=== PATIENT | male | born 1985 | race Caucasian/White ===

== ENCOUNTER 2019-02-02 15:52 | Emergency (ER) | payer BC, OTHER ==
[2019-02-02] MEDS ORDERED: Naproxen TAB* 250 MG PO ONE (16:13)
[2019-02-02 16:35] LABS: ABS Basophils 0.1 10^3/ul (0-0.2); ABS Eosinophils 0.3 10^3/ul (0-0.6); ABS Lymphocytes 2.7 10^3/ul (1.0-4.8); ABS Monocytes 0.9 10^3/ul (0-0.8); ABS Neutrophils 6.8 10^3/ul (1.5-7.7); ABS Nucleated RBC 0 10^3/ul; Eosinophil % 3.1 %; Hematocrit 46 % (36-46); Hemoglobin 15.3 g/dL (14.0-18.0); Lymphocyte % 24.6 %; Mean Corpuscular HGB Conc 33 g/dL (31-36); Mean Corpuscular Hemoglobin 28 pg (27-31); Mean Corpuscular Volume 84 fL (80-94); Mean Platelet Volume 7.6 fL (7.4-10.4); Nucleated Red Blood Cells % 0; Platelet Count 294 10^3/uL (150-450); Red Blood Count 5.49 10^6 /uL (4.18-5.48); Red Cell Distribution Width 14 % (10.5-15); White Blood Count 10.8 10^3/uL (3.5-10.8)
[2019-02-02 16:57] LABS: Albumin 4.7 g/dL (3.2-5.2); Albumin/Globulin Ratio 1.4 (1-3); C Reactive Protein 8.13 mg/L (<8.01); Calcium 9.4 mg/dL (8.6-10.3); EGFR African American 84.1 (>60); EGFR Non-African American 69.5 (>60); Globulin 3.3 g/dL (2-4); Total Bilirubin 0.3 mg/dL (0.2-1.0); Uric Acid 9.8 mg/dL (4.4-7.6)
--- NOTE | 2019-02-02 17:11 | ED ---
Lower Extremity - HPI Summary HPI Summary: Patient complains of great left toe pain 2 day. States he's been taking Augmentin 4 days and states it may be possible allergic reaction. States she has taken Augmentin before without issue. States pain is at joint of big toe with some mild redness and swelling. Denies history of similar symptoms. Denies trauma, fever, cough, sore throat, CP, SOB, N/V/D, abdominal pain, change in urine, change in BM. Denies history of gout. Medical history is none. Family history of gout. - History of Current Complaint Chief Complaint: EDExtremityLower Stated Complaint: MEDICATION REACTION PER PT Time Seen by Provider: 02/02/19 16:01 Hx Obtained From: Patient Mechanism Of Injury: Unknown Onset of Pain: Days Onset/Duration: Days Severity Initially: Severe Severity Currently: Severe Pain Intensity: 8 Pain Scale Used: 0-10 Numeric Timing: Constant, Lasting Days Location: Is Discrete @ Character Of Pain: Aching, Throbbing Associated Signs And Symptoms: Positive: Swelling, Redness Aggravating Factor(s): Standing, Ambulation, Weight Bearing Alleviating Factor(s): Rest Able to Bear Weight: Yes - Allergies/Home Medications Allergies/Adverse Reactions: Allergies Allergy/AdvReac Type Severity Reaction Status Date / Time No Known Allergies Allergy Verified 02/02/19 15:54 PMH/Surg Hx/FS Hx/Imm Hx Endocrine/Hematology History: Denies: Hx Diabetes, Hx Thyroid Disease Cardiovascular History: Denies: Hx Hypertension Respiratory History: Denies: Hx Asthma, Hx Chronic Obstructive Pulmonary Disease (COPD) GI History: Denies: Hx Ulcer History: Denies: Hx Dialysis Sensory History: Denies: Hx Eye Prosthesis Opthamlomology History: Denies: Hx Legally Blind EENT History: Denies: Hx Deafness Neurological History: Denies: Hx Dementia Psychiatric History: Denies: Hx Autism - Surgical History Surgery Procedure, Year, and Place: cyst in throat- 5 yrs old Infectious Disease History: No Infectious Disease History: Denies: Hx Hepatitis, Hx Human Immunodeficiency Virus (HIV), Traveled Outside the [place] in Last 30 Days - Family History Known Family History: Positive: None - Social History Alcohol Use: Occasionally Substance Use Type: Reports: None Smoking Status (MU): Never Smoked Tobacco Length of Time of Smoking/Using Tobacco: 10 years Have You Smoked in the Last Year: Yes Review of Systems Constitutional: Negative Eyes: Negative ENT: Negative Cardiovascular: Negative Respiratory: Negative Gastrointestinal: Negative Genitourinary: Negative Musculoskeletal: Other Skin: Negative Neurological: Negative Psychological: Normal All Other Systems Reviewed And Are Negative: Yes Physical Exam - Summary Physical Exam Summary: Mild swelling and erythema to MTP joint of left great toe. No extra warmth noted. Mild tenderness to palpation of left great toe, left MTP joint and surrounding area. Full range of motion of left ankle and knee. Calf soft nontender. Pulses intact on left foot. Triage Information Reviewed: Yes Vital Signs On Initial Exam: Initial Vitals Temp Pulse Resp BP Pulse Ox 98.0 F 99 19 152/106 99 02/02/19 15:54 02/02/19 15:54 02/02/19 15:54 02/02/19 15:54 02/02/19 15:54 Vital Signs Reviewed: Yes Appearance: Positive: Well-Appearing Skin: Positive: Warm Head/Face: Positive: Normal Head/Face Inspection Eyes: Positive: Normal Neck: Positive: Supple Respiratory/Lung Sounds: Positive: Clear to Auscultation Cardiovascular: Positive: Normal Abdomen Description: Positive: Nontender Musculoskeletal: Positive: Normal Neurological: Positive: Normal Psychiatric: Positive: Normal AVPU Assessment: Alert - [place] Coma Scale Best Eye Response: 4 - Spontaneous Best Motor Response: 6 - Obeys Commands Best Verbal Response: 5 - Oriented Coma Scale Total: 15 Diagnostics - Vital Signs Vital Signs Temp Pulse Resp BP Pulse Ox 02/02/19 15:54 98.0 F 99 19 152/106 99 - Laboratory Lab Results: Lab Results 02/02/19 02/02/19 Range/Units 16:26 16:26 WBC 10.8 (3.5-10.8) 10^3/uL RBC 5.49 H (4.18-5.48) 10^6 /uL Hgb 15.3 (14.0-18.0) g/dL Hct 46 (36-46) % MCV 84 (80-94) fL MCH 28 (27-31) pg MCHC 33 (31-36) g/dL RDW 14 (10.5-15) % Plt Count 294 (150-450) 10^3/uL MPV 7.6 (7.4-10.4) fL Neut % (Auto) 63.2 % Lymph % (Auto) 24.6 % Lar[place] % (Auto) 8.5 % Eos % (Auto) 3.1 % Baso % (Auto) 0.6 % Absolute Neuts (auto) 6.8 (1.5-7.7) 10^3/ul Absolute Lymphs (auto) 2.7 (1.0-4.8) 10^3/ul Absolute Monos (auto) 0.9 H (0-0.8) 10^3/ul Absolute Eos (auto) 0.3 (0-0.6) 10^3/ul Absolute Basos (auto) 0.1 (0-0.2) 10^3/ul Absolute Nucleated RBC 0 10^3/ul Nucleated RBC % 0 ESR Pending Sodium 142 (135-145) mmol/L Potassium Pending Chloride 106 (101-111) mmol/L Carbon Dioxide 28 (22-32) mmol/L Anion Gap Pending BUN 23 (6-24) mg/dL Creatinine 1.21 H (0.67-1.17) mg/dL Est GFR ( Amer) 84.1 (>60) Est GFR (Non-Af Amer) 69.5 (>60) BUN/Creatinine Ratio 19.0 (8-20) Glucose 106 H (70-100) mg/dL Uric Acid 9.8 H (4.4-7.6) mg/dL Calcium 9.4 (8.6-10.3) mg/dL Total Bilirubin 0.30 (0.2-1.0) mg/dL AST Pending ALT 113 H (7-52) U/L Alkaline Phosphatase 48 (34-104) U/L C-Reactive Protein 8.13 H (<8.01) mg/L Total Protein 8.0 (6.4-8.9) g/dL Albumin 4.7 (3.2-5.2) g/dL Globulin 3.3 (2-4) g/dL Albumin/Globulin Ratio 1.4 (1-3) Result Diagrams: 02/02/19 16:26 02/02/19 16:26 Lab Statement: Any lab studies that have been ordered have been reviewed, and results considered in the medical decision making process. Lower Extremity Course/Dx - Course Course Of Treatment: Patient complains of great left toe pain 2 day. States he 's been taking Augmentin 4 days and states it may be possible allergic reaction. States she has taken Augmentin before without issue. States pain is at joint of big toe with some mild redness and swelling. Denies history of similar symptoms. Denies trauma, fever, cough, sore throat, CP, SOB, N/V/D, abdominal pain, change in urine, change in BM. Denies history of gout. Medical history is none. Family history of gout. Brother just recently diagnosed with gout at age of 27. Physical exam:Mild swelling and erythema to MTP joint of left great toe. No extra warmth noted. Mild tenderness to palpation of left great toe, left MTP joint and surrounding area. Full range of motion of left ankle and knee. Calf soft nontender. Pulses intact on left foot. Vital signs within normal limits. WBC normal. Creatinine 1.21. Uric acid 9.8. CRP 8.13. Labs otherwise within normal limits. Patient refused IV fluids. Patient started on naproxen and colchicine 1.2 mg 1. Rx for naproxen 500 mg twice a day. Follow-up with primary care. Patient understands and approves of plan. Patient refused IV fluids for elevated CR 1.21, opted to go home and hydrate by mouth. - Diagnoses Provider Diagnoses: Gout attack Discharge - Sign-Out/Discharge Documenting (check all that apply): Patient Departure Patient Received Moderate/Deep Sedation with Procedure: No - Discharge Plan Condition: Stable Disposition: HOME Prescriptions: Naproxen [Naproxen 500 mg tab] 500 mg PO BID 15 Days #30 tablet. Patient Education Materials: Low Purine Diet (ED), Gout (ED) Forms: *Work Release Referrals: Buster Pereira MD [Primary Care Provider] - Additional Instructions: Take naproxen 500mg twice a day until pain resolves. Drink plenty of water to maintain hydration. Follow-up with primary care for further management. Return to the ED for any new or worsening symptoms. - Billing Disposition and Condition Condition: STABLE Disposition: Home
[2019-02-02 18:03] LABS: Erythrocyte Sed Rate 6 mm/Hr (0-14)
[2019-02-02 18:08] VITALS: BP 148/97
[2019-02-03] MEDS ORDERED: Colchicine* 0.6 MG TAB PO ONE (17:21)
== END 2019-02-02 18:00 | disposition home or self-care (01) ==
LOC: ED 15:52
DX: M10.9 Gout, unspecified (principal)
CPT/HCPCS: 36415; 80053; 84550; 85025; 85652; 86140; 99282; A9270-GY